=== PATIENT | female | born 1980 | race African-American/Black ===

== ENCOUNTER 2018-02-10 18:27 | Emergency (ER) | payer OTHER ==
[~2018-02-10] VITALS: Ht 170.2 cm; Wt 95.3 kg
--- NOTE | 2018-02-10 18:32 | ED UPPER/LOWER EXTREMITY COMPL ---
History of Present Illness General Chief Complaint: Hand or Wrist Injury Stated Complaint: R HAND PAIN AFTER INJURY Source: patient Exam Limitations: no limitations Vital Signs & Intake/Output Vital Signs & Intake/Output Vital Signs Date Time Temp Pulse Resp B/P B/P Pulse O2 O2 Flow FiO2 Mean Ox Delivery Rate 02/10 1836 98.1 81 18 117/81 98 Room Air Allergies Coded Allergies: NO KNOWN ALLERGIES (11/18/11) Triage Nurses Notes Reviewed? yes Onset: Abrupt Duration: constant Timing: single episode today Severity: moderate Severity Numbers: 5 HPI: Patient is a 37-year-old female who presents emergency room with concerns of approximately striking the right dorsal aspect of her hand against a wall while walking patient denies any elbow wrist pain skin is intact patient is right-hand -dominant no medications given prior to arrival. (Carrillo Escalante) Reconcile Medications Meloxicam (Mobic) 15 MG TABLET 1 TAB PO DAILY PRN PAIN (Aldair PANDYA,Angus Dumont) Past History Travel History Traveled to [place] past 21 day No Medical History Any Pertinent Medical History? none Neurological: NONE EENT: NONE Cardiovascular: NONE Respiratory: NONE Gastrointestinal: NONE Hepatic: NONE Renal: NONE Musculoskeletal: NONE Psychiatric: NONE Endocrine: NONE Surgical History Surgical History: non-contributory Psychosocial History Who do you live with Family Services at Home None What is your primary language Italian Family History Hx Contributory? No (Carrillo Escalante) Review of Systems Review of Systems Constitutional: Reports: no symptoms. EENTM: Reports: no symptoms. Respiratory: Reports: no symptoms. Cardiovascular: Reports: no symptoms. Gastrointestinal/Abdominal: Reports: no symptoms. Genitourinary: Reports: no symptoms. Musculoskeletal: Reports: see HPI. Skin: Reports: no symptoms. Neurological/Psychological: Reports: no symptoms. Hematologic/Endocrine: Reports: no symptoms. Immunological: Reports: no symptoms. All Other Systems: Reviewed and Negative (Carrillo Escalante) Physical Exam Physical Exam General Appearance: no apparent distress, alert, comfortable Head: atraumatic Eyes: Bilateral: normal appearance. Ears, Nose, Throat: hearing grossly normal Peripheral Pulses: 2+ radial (R) Neurologic/Tendon: normal sensation, normal motor functions, normal tendon functions, responds to pain, no evidence tendon injury, no pulse deficit Skin: intact, normal color, warm/dry Diagram Right Arm Back 1) Noted second and third carpal bones tenderness and swelling no scaphoid tenderness decreased active range of motion with manager ecommerce strength Right wrist normal inspection nontender (Carrillo Escalante) Progress Differential Diagnosis: arterial insufficiency, compartment syndrome, contusion, dislocation, DVT, fracture, gout, septic arthritis, sprain, tendon injury Plan of Care: Orders Procedure Date/time Status XRY-HAND, 3 View RIGHT 02/10 1835 Active Patient was neurovascular intact to right upper extremity no wrist tenderness on exam no scaphoid tenderness x-rays resulted no osseous injury patient will be treated for concerns of contusion of the right hand. I applied DEMARCUS WRAP TO the right hand pre-and post-neurovascular was intact Diagnostic Imaging: Viewed by Me: Radiology Read. Radiology Impression: no acute abnormality, no fracture Comments: PATIENT: ABDON HARVEY PRESENT AGE: 37 PATIENT ACCOUNT NO: [id number] : 80 LOCATION: [facility] ORDERING PHYSICIAN: Carrillo ACEVEDO SERVICE DATE: 02/10/18 EXAM TYPE: RAD - XRY-HAND, RIGHT EXAMINATION: XR HAND, RIGHT CLINICAL INFORMATION: Right hand trauma COMPARISON: None TECHNIQUE: PA, lateral, and oblique views of the right hand. FINDINGS: No acute fracture or dislocation. No lytic or sclerotic bony lesion. Mild soft tissue swelling of the first interdigital space noted. No soft tissue air or radiodense foreign body. IMPRESSION: No acute fracture or dislocation. DICTATED BY: Alfonso Arita MD DATE/TIME DICTATED:02/10/18 (Carrillo Escalante) Departure Departure Disposition: HOME OR SELF CARE Condition: Stable Clinical Impression Primary Impression: Contusion of right hand Referrals: Unknown (PCP/Family) Domenic Cantu MD Additional Instructions: As discussed BEGIN THE prescription of meloxicam for pain and inflammation, begin using the Demarcus wrap for swelling, if no better in one week follow-up with orthopedic Dr. Cantu. Prescriptions waiting AT [facility]. If symptoms worsen return to the emergency room Departure Forms: Customer Survey General Discharge Information Prescriptions: Current Visit Scripts Meloxicam (Mobic) 1 TAB PO DAILY PRN PAIN #7 TAB (Carrillo Escalante) PA/TOOL FILER HAND Co-Sign Statement Statement: ED Attending supervision documentation- [] I saw and evaluated the patient. I have also reviewed all the pertinent lab results and diagnostic results. I agree with the findings and the plan of care as documented in the PA's/TOOL FILER HAND's documentation. [x] I have reviewed the ED Record and agree with the PA's/TOOL FILER HAND's documentation. [] Additions or exceptions (if any) to the PAs/TOOL FILER HAND's note and plan are summarized below: [] (Aldair PANDYA,Angus Dumont)
[2018-02-10 18:36] VITALS: BP 117/81
--- NOTE | 2018-02-10 19:52 | RADIOLOGY REPORT ---
EXAMINATION: XR HAND, RIGHT CLINICAL INFORMATION: Right hand trauma COMPARISON: None TECHNIQUE: PA, lateral, and oblique views of the right hand. FINDINGS: No acute fracture or dislocation. No lytic or sclerotic bony lesion. Mild soft tissue swelling of the first interdigital space noted. No soft tissue air or radiodense foreign body. IMPRESSION: No acute fracture or dislocation.
[2018-02-10] MEDS ORDERED: MOBIC15 M1 PO (19:58)
== END 2018-02-10 20:18 ==
LOC: ERH 18:27
DX: S60.221A Contusion of right hand, initial encounter (principal); W22.01XA Walked into wall, initial encounter; Y92.9 Unspecified place or not applicable; Y93.01 Activity, walking, marching and hiking
CPT/HCPCS: 73130-RT